=== PATIENT | male | born 1990 | race Caucasian/White ===

== ENCOUNTER 2018-01-15 02:44 | Emergency (ER) | payer OTHER ==
[~2018-01-15] VITALS: Ht 182.9 cm; Wt 73.0 kg
[2018-01-15 02:46] VITALS: BP 120/75
[2018-01-15] MEDS ORDERED: DIPH,PERTUSS(ACELL),TET VAC/PF 0.5 ML IM-VACC ONE (03:20)
[2018-01-15] MEDS ORDERED: DIPH,PERTUSS(ACELL),TET VAC/PF NC IM-VACC ONE (03:30)
[2018-01-15] MEDS ORDERED: BACITRACIN ZINC OINT 500U/GM, 0.9 GM ONE (04:05)
== END 2018-01-15 04:38 | disposition home or self-care (01) ==
LOC: ED 03:33
DX: S62.336A Displaced fracture of neck of fifth metacarpal bone, right hand, initial encounter for closed fracture (principal); X50.1XXA Overexertion from prolonged static or awkward postures, initial encounter; Y93.89 Activity, other specified; Y92.89 Other specified places as the place of occurrence of the external cause; Y99.8 Other external cause status
CPT/HCPCS: 29105; 90471; 90715

== ENCOUNTER 2019-08-08 05:59 | Emergency (ER) | payer OTHER ==
[~2019-08-08] VITALS: Ht 182.9 cm; Wt 75.0 kg
--- NOTE | 2019-08-08 06:02 | NUR ---
CALLED FOR TRIAGE. PT IN RESTROOM.
[2019-08-08 06:03] VITALS: BP 130/69
--- NOTE | 2019-08-08 06:10 | NUR ---
Pt ambulatory to room. Pt reports leila in his left upper arm that he wants removed. Pt reports it has been there for a few years. Pt reports he is scheduled for an MRI at the end of the month. Leila felt in arm. Pt changing into gown. Call light within reach.
--- NOTE | 2019-08-08 06:48 | NUR ---
Pt dc'd to self care. Pt edcuated on follow-up. Pt VU. Pt ambulated out of ER.
== END 2019-08-08 06:50 | disposition home or self-care (01) ==
LOC: ED 06:35
DX: M79.5 Residual foreign body in soft tissue (principal)
CPT/HCPCS: 99281